=== PATIENT | male | born 1975 ===

== ENCOUNTER 2021-06-26 10:42 | Outpatient (CLI) | payer OTHER, SELFPAY ==
[2021-06-26 16:44] LABS: Anion Gap 8 mmol/L (8-16); Blood Urea Nitrogen 17 mg/dL (9-20); Calcium 9.6 mg/dL (8.4-10.2); Carbon Dioxide 26 mmol/L (22-30); Chloride 104 mmol/L (98-107); Estimated Glomerular Filt Rate > 60; Glucose 136 mg/dL (65-110); HDL Direct 42 mg/dL; Potassium 4.3 mmol/L (3.4-5.0); Sodium 138 mmol/L (137-145)
[2021-06-26 16:55] LABS: LDL Cholesterol Direct 81 mg/dL
[2021-06-26 16:57] LABS: Creatinine Urine 81.3 mg/dL
[2021-06-26 17:02] LABS: MALB Creatinine Ratio 39.4 mg/g (0-30)
[2021-06-28 20:06] LABS: C-Peptide 1.33 ng/mL (0.80-3.85)
== END 2021-06-26 10:43 | disposition home or self-care (01) ==
PROVIDERS: Visit Provider Internal Medicine Endocrinology, Diabetes & Metabolism
DX: E10.9 Type 1 diabetes mellitus without complications (principal); E78.5 Hyperlipidemia, unspecified; R80.9 Proteinuria, unspecified
CPT/HCPCS: 36415; 80048; 82043; 83718; 83721; 84681

== ENCOUNTER 2022-04-05 10:28 | Outpatient (CLI) | payer OTHER, SELFPAY ==
[2022-04-08 17:15] LABS: Glutamic acid decarboxylase AA <5 IU/mL (<5)
[2022-04-13 20:47] LABS: Zinc Transporter 8 Antibody <10 U/mL (<15)
[2022-04-18 21:02] LABS: Islet Cell Antibody Screen NEGATIVE (NEGATIVE)
== END 2022-04-05 10:29 | disposition home or self-care (01) ==
LOC: ANHWCLAB 10:29
PROVIDERS: Visit Provider Internal Medicine Endocrinology, Diabetes & Metabolism
DX: E11.9 Type 2 diabetes mellitus without complications (principal)
CPT/HCPCS: 36415; 86341